=== PATIENT | male | born 1990 | race Two or more races ===

== ENCOUNTER 2024-06-06 19:01 | Emergency (ER) | payer OTHER ==
[2024-06-06 19:13] VITALS: BMI 30.7
[2024-06-06] MEDS ORDERED: IBUPROFEN 600 MG TABLET (FP) PO ONE (19:14)
[2024-06-06] MEDS ORDERED: ACETAMINOPHEN 500 MG TABLET (FP) ONE (19:15)
[2024-06-06] MEDS: IBUPROFEN 600 MG TABLET (FP) PO ONE (19:16)
[2024-06-06] MEDS: ACETAMINOPHEN 500 MG TABLET (FP) PO ONE (19:17)
[2024-06-06 20:20] VITALS: BP 129/87; PULSE 104; RESP 18; TEMP 102.6
[2024-06-06] MEDS ORDERED: AMOX TR/POT CLAV 875MG/125MG TABLETS (FP) ONE (20:55)
[2024-06-06] MEDS ORDERED: AZITHROMYCIN 500 MG TABLET ONE (20:55)
[2024-06-06] MEDS: AZITHROMYCIN 500 MG TABLET PO ONE (20:59)
[2024-06-06] MEDS: AMOX TR/POT CLAV 875MG/125MG TABLETS (FP) PO ONE (20:59)
== END 2024-06-06 21:12 | disposition home or self-care (01) ==
LOC: JER 19:01
DX: J10.1 Influenza due to other identified influenza virus with other respiratory manifestations (principal); J18.9 Pneumonia, unspecified organism; R50.9 Fever, unspecified; R05.9 Cough, unspecified; R09.81 Nasal congestion; M79.10 Myalgia, unspecified site; Z20.822 Contact with and (suspected) exposure to COVID-19
CPT/HCPCS: 0241U-QW; 71046-TC-FY; 99284-25